=== PATIENT | male | born 2000 | race Caucasian/White ===

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

== ENCOUNTER 2021-09-30 20:12 | Emergency (ER) | payer BC ==
[~2021-09-30] VITALS: Ht 185.4 cm; Wt 116.1 kg
[~2021-09-30 20:12] MED LIST changes: +BENZ100A PO; +Prednisone20 MG PO
== END 2021-09-30 21:10 | disposition left against medical advice (07) ==
LOC: ER 20:12
DX: Z53.21 Procedure and treatment not carried out due to patient leaving prior to being seen by health care provider (principal)

== ENCOUNTER 2023-05-17 18:57 | Emergency (ER) | payer SELFPAY ==
[~2023-05-17] VITALS: Ht 185.4 cm; Wt 117.9 kg
[2023-05-17 19:32] VITALS: BP 156/81
== END 2023-05-17 19:41 | disposition home or self-care (01) ==
LOC: ER 18:57
DX: S46.912D Strain of unspecified muscle, fascia and tendon at shoulder and upper arm level, left arm, subsequent encounter (principal); X58.XXXD Exposure to other specified factors, subsequent encounter; J45.909 Unspecified asthma, uncomplicated; Z79.899 Other long term (current) drug therapy
CPT/HCPCS: 99283

== ENCOUNTER → 2024-06-21 | Outpatient (CLI) | payer SELFPAY ==
[2024-06-22 16:23] LABS: HEPATITIS B SURFACE ANTIBODY 3.96 IU/L
[2024-06-22 16:45] LABS: HEPATITIS B SURFACE ANTIGEN Negative (Negative)
[2024-06-22 17:57] LABS: HIV 1,2 COMBO ANTIGEN/ANTIBODY Negative (Negative)
[2024-06-23 14:04] LABS: HCV QNT BY NAAT (IU/ML) Not Detected; HCV QNT BY NAAT (LOG IU/ML) Not Detected; HCV QNT BY NAAT INTERP Not Detected (Not Detected)
== END | disposition home or self-care (01) ==
LOC: LAB SHORT 12:51 → LAB 12:51
PROVIDERS: Physician Assistant
DX: Z00.00 Encounter for general adult medical examination without abnormal findings (principal)
CPT/HCPCS: 87340; 87389; 87522